=== PATIENT | female | born 1970 | race Caucasian/White ===

== ENCOUNTER → 2019-05-24 | Outpatient (CLI) | payer BC ==
--- NOTE | 2019-05-24 09:40 | PCVCIMAG ---
EXAM: BILATERAL RENAL ULTRASOUND AND BILATERAL RENAL DUPLEX INDICATION: Hypertension. FINDINGS: Right kidney: Length measures 10.4 cm. No hydronephrosis or extensive renal scarring. Right renal duplex: Adequate technical quality. No sonographic evidence of renal artery stenosis. The aortic to renal artery ratio is 1.6. The renal vein is patent. Left kidney: Length measures 10.8 cm. No hydronephrosis or extensive renal scarring. Left renal duplex: Adequate technical quality. No sonographic evidence of renal artery stenosis. The aortic to renal artery ratio is 1.6. The renal vein is patent. Bladder: No obvious abnormalities. IMPRESSION: No significant renal artery stenosis. No hydronephrosis bilaterally. Multiple benign cysts in both kidneys. In the mid pole the right kidney is a 1.4 x 1.4 x 2.6 cm cyst which contains an echogenic focus making it indeterminate. Interval follow-up per urology is suggested. LOC:[id number]
--- NOTE | 2019-05-24 10:03 | PCVCIMAG ---
APPROVED REPORT Study performed: 05/24/2019 08:57:03 EXAM: Comprehensive 2D, Doppler, and color-flow Echocardiogram Patient Location: Echo lab Status: routine BSA: 1.82 HR: 70 bpmBP: 156/96 mmHg Rhythm: NSR Other Information Study Quality: Adequate Risk Factors: Cardiac Risk Factors: HTN, Hyperlipidemia Indications Chest Pain tobacco use 2D Dimensions IVSd: 13.75 (7-11mm) LVDd: 43.66 mm PWd: 14.46 (7-11mm)Ascending Ao: 31.04 (22-36mm) LVDs: 29.53 (25-40mm) Left Atrium: 38.07 (27-40mm) Aortic Root: 29.65 mm LV Single Plane 4CH: 57.52 % LV Single Plane 2CH: 61.59 % Biplane EF: 59.3 % Volumes Left Atrial Volume (Systole) Single Plane 4CH: 85.21 mLSingle Plane 2CH: 98.86 mL LA ESV Index: 51.00 mL/m2 Aortic Valve AoV Peak Matti.: 1.81 m/s AO Peak Gr.: 13.10 mmHgLVOT Max P.86 mmHg LVOT Max V: 1.46 m/s Mitral Valve E/A Ratio: 0.9 MV Decel. Time: 304.44 ms MV E Max Matti.: 0.92 m/s MV A Matti.: 1.01 m/s IVRT: 145.33 ms Pulmonary Valve PV Peak Matti.: 1.19 m/sPV Peak Gr.: 5.62 mmHg Pulmonary Vein P Vein S: 0.23 m/sP Vein A: 0.30 m/s P Vein D: 0.41 m/sP Vein A Dur.: 114.2 msec P Vein S/D Ratio: 0.56 Tricuspid Valve TR Peak Matti.: 2.59 m/s TR Peak Gr.: 26.75 mmHg TV Vmax: 0.56 m/s Left Ventricle The left ventricle is normal size. There is normal LV segmental wall motion. Moderate concentric left ventricular hypertrophy. Left ventricular systolic function is normal. The left ventricular ejection fraction is within the normal range. LVEF is 55-60%. Mild diastolic dysfunction Right Ventricle The right ventricle is normal size. The right ventricular systolic function is normal. Atria The left atrium size is moderately dilated. The right atrium size is normal. Aortic Valve The aortic valve is normal in structure. No aortic regurgitation is present. There is no aortic valvular stenosis. Mitral Valve The mitral valve is normal in structure. Mild mitral regurgitation. No evidence of mitral valve stenosis. Tricuspid Valve The tricuspid valve is normal in structure. Mild tricuspid regurgitation with PAP of 34 mmHg. Pulmonic Valve The pulmonary valve is normal in structure. There is no pulmonic valvular regurgitation. Great Vessels The aortic root is normal in size. IVC is normal in size and collapses >50% with inspiration. Pericardium There is no pericardial effusion. There is no pleural effusion. <Conclusion> Left ventricular systolic function is normal. There is normal LV segmental wall motion. LVEF is 55-60%. Mild diastolic dysfunction The aortic valve is normal in structure. No aortic regurgitation or stenosis The mitral valve is normal in structure. Mild mitral regurgitation. Mild tricuspid regurgitation with pulmonary artery pressure of 34 mmHg. There is no pericardial effusion.
== END | disposition home or self-care (01) ==
LOC: PCVCIMAG 08:51
PROVIDERS: ATTEND Internal Medicine
DX: I08.1 Rheumatic disorders of both mitral and tricuspid valves (principal); I10 Essential (primary) hypertension; E78.5 Hyperlipidemia, unspecified; R07.2 Precordial pain; Z72.0 Tobacco use
CPT/HCPCS: 76770; 93306; 93975

== ENCOUNTER → 2019-06-11 | Outpatient (CLI) | payer BC ==
--- NOTE | 2019-06-11 16:49 | PCVCIMAG ---
APPROVED REPORT Study performed: 06/11/2019 14:09:39 Exam: Stress Echocardiogram Indication: Hypertension, Chest pain Patient Location: Echo lab Stress Nurse: Amanda Yepez RN Status: routine Ht: 5 ft 2 in HR: 69 bpm BP: 174/96 mmHg Rhythm: NSR Medical History Medical History: Hyperlipidemia, Tobacco history (Current/Recent) Procedure The patient underwent an Exercise Stress Test using the Gabriel Protocol. Blood pressure, heart rate, and EKG were monitored. An Echocardiogram was performed by investment recovery technician in four stages in quad fashion. At peak stress, four selected images were obtained and placed side by side with resting images for comparison. Stress Test Details Stress Test: Exercise stress testing was performed using a Gabriel protocol. HR Resting HR: 69 bpmMax Heart Rate (APMHR): 170 bpm Max HR Achieved: 141 bpmTarget HR (85% APMHR): 144 bpm % of APMHR: 82 Recovery HR: 93 bpm HR response to stress: Normal HR response to stress BP Resting BP: 174/96 mmHg Max BP: 204/90 mmHg Recovery BP: 188/94 mmHg BP response to stress: Normal blood pressure response to stress. ECG Resting ECG: Sinus Rhythm, LVH with repolarization changes Stress ECG: Sinus Rhythm, LVH with repolarization changes ST Change: Normal Maximum ST Deviation: 0.5 mm Recovery ECG: Sinus Rhythm, LVH with repolarization changes Recovery ST Change: Normal Recovery ST Deviation: 0 mm Recovery Arrhythmia: None Clinical Reason for Termination: Maximal effort, Dyspnea Exercise duration: 7 min 08 sec Highest Stage Achieved: Stage 3: 3.4 mph at 14% grade. Exercise capacity: 10.10 METs Overall Exercise Capacity for Age: Average Angina Score: None Stress ECG Conclusion ECG: Non-ischemic Clinical: Non-ischemic Kim Treadmill Score is 4.5 which is Moderate risk. Pre-Stress Echo The resting Echocardiogram showed normal left ventricular contractility with an estimated Ejection Fraction of about >55%. Normal wall motion in all segments on baseline images. Post-Stress Echo The stress Echocardiogram showed normal left ventricular contractility with an estimated Ejection Fraction of about 60-65%. Normal augmentation of wall motion in all segments on post stress images. Clinical No clinical or ECG evidence for ischemia. Conclusion Clinical Response: Non-ischemic Exercise Capacity: Average Stress ECG Response: Non-ischemic Stress Echo Images: Non-ischemic The left ventricle is normal in size and wall thickness in both the rest and stress images. Moderate LVH. Normal stress echocardiogram with maximal exercise stress. No stenosis or regurgitation on pulmonic, mitral, or aortic valves. Trace tricuspid regurgitation by color flow doppler. Other Information Study Quality: Good <Conclusion> The left ventricle is normal in size and wall thickness in both the rest and stress images. Moderate LVH. Normal stress echocardiogram with maximal exercise stress. No stenosis or regurgitation on pulmonic, mitral, or aortic valves. Trace tricuspid regurgitation by color flow doppler.
== END | disposition home or self-care (01) ==
LOC: PCVCIMAG 14:03
PROVIDERS: ATTEND Internal Medicine
DX: R07.2 Precordial pain (principal); E78.5 Hyperlipidemia, unspecified; I10 Essential (primary) hypertension; Z72.0 Tobacco use
CPT/HCPCS: 93325; 93351